=== PATIENT | male | born 1945 | race Caucasian/White ===

== ENCOUNTER 2018-01-24 01:42 | Inpatient (IN) | payer MEDICARE ==
[~2018-01-24] VITALS: Ht 167.6 cm; Wt 76.8 kg
[2018-01-24] MEDS ORDERED: SODIUM CHLORIDE FLUSH 10ML SYR IVF ONE (02:30)
[2018-01-24] MEDS ORDERED: ASPIRIN 81 MG TABLET CHEW PO ONE (02:30)
[2018-01-24] MEDS ORDERED: ACETAMINOPHEN 500 MG TABLET PO ONE (02:30)
[2018-01-24 02:42] LABS: BASOPHILS # (AUTO) 0.03 x10^3/uL (0-0.1); BASOPHILS % (AUTO) 0 % (0-1); EOSINOPHILS # (AUTO) 0.56 x10^3/uL (0-0.4); EOSINOPHILS % (AUTO) 8 % (1-7); LYMPHOCYTES # (AUTO) 1.32 x10^3/uL (1-3.4); LYMPHOCYTES % (AUTO) 19 % (22-44); MD NO; MEAN CORPUSCULAR HGB CONC 32.6 g/dL (33.2-36.2); MEAN CORPUSCULAR VOLUME 94.9 fL (81-97); MEAN PLATELET VOLUME 8.4 fL (7.4-10.4); MONOCYTES % (AUTO) 9 % (2-9); NEUTROPHILS # (AUTO) 4.54 x10^3/uL (1.8-6.8); NEUTROPHILS % (AUTO) 64 % (42-75); PLATELET COUNT 176 x10^3/uL (130-400); RED CELL DISTRIBUTION WIDTH 15.7 % (9.4-14.8)
[2018-01-24] MEDS ORDERED: ACETAMINOPHEN 500 MG TABLET ONE (02:47)
[2018-01-24] MEDS ORDERED: ASPIRIN 81 MG TABLET CHEW ONE (02:47)
[2018-01-24 02:54] LABS: ALANINE AMINOTRANSFERASE 26 U/L (12-78); ALBUMIN 3.6 g/dL (3.4-5.0); ANION GAP 8 mmol/L (5-15); CALCIUM 9.2 mg/dL (8.5-10.1); CHLORIDE 105 mmol/L (98-107); CREATININE 1.62 mg/dL (0.7-1.3)
[2018-01-24 02:58] LABS: ALKALINE PHOSPHATASE 106 U/L (45-117); BILIRUBIN,TOTAL 0.5 mg/dL (0.2-1.0); TOTAL PROTEIN 6.8 g/dL (6.4-8.2); TROPONIN I < 0.015 ng/mL (0.000-0.045)
[2018-01-24 03:05] LABS: INTERNATIONAL NORMALIZED RATIO 1.03 (0.93-1.1); PROTHROMBIN TIME 10.6 Seconds (9.6-11.5)
[2018-01-24] MEDS ORDERED: SODIUM CHLORIDE 0.9% 1,000ML IVBOLUS ONE (04:00)
[2018-01-24] MEDS ORDERED: OMNIPAQUE 350 MG/ML, 100ML BOTTLE ONE (04:47)
[2018-01-24] MEDS ORDERED: RIVAROXABAN 15 MG TABLET PO ONE (06:00)
[2018-01-24] MEDS ORDERED: HEPARIN 25,000 UNITS/500ML PMX 500 ML ONE (07:39)
[2018-01-24] MEDS ORDERED: HEPARIN 5,000 UNITS/ML, 1ML ONE (07:39)
[2018-01-24] MEDS ORDERED: HEPARIN 5,000 UNITS/ML, 1ML IV ONE (08:00)
[2018-01-24] MEDS ORDERED: HEPARIN 25,000 UNITS/500ML PMX 500 ML IV PRN (08:00)
[2018-01-24] MEDS ORDERED: HEPARIN 5,000 UNITS/ML, 1ML IV PRN (08:00)
[2018-01-24] MEDS ORDERED: CLOP75TA PO (08:11)
[2018-01-24] MEDS ORDERED: LOSA50TA6 PO (08:11)
[2018-01-24] MEDS ORDERED: UBID200C7 PO (08:11)
[2018-01-24] MEDS ORDERED: FURO20TA3 PO (08:11)
[2018-01-24] MEDS ORDERED: ASPI-496 PO (08:11)
[2018-01-24] MEDS ORDERED: PANT40TA5 PO (08:11)
[2018-01-24] MEDS ORDERED: ROSU10TA PO (08:11)
[2018-01-24] MEDS ORDERED: EPLE25TA4 PO (08:11)
[2018-01-24] MEDS ORDERED: ALLO300T PO (08:11)
[2018-01-24] MEDS ORDERED: RANI300C PO (08:11)
[2018-01-24 08:25] VITALS: BP 159/78
[2018-01-24] MEDS ORDERED: ALLOPURINOL 300 MG TABLET PO SCH (09:00)
[2018-01-24] MEDS ORDERED: ACETAMINOPHEN 325 MG TABLET PO PRN (09:30)
[2018-01-24] MEDS ORDERED: ONDANSETRON 2MG/ML, 2ML IVPush PRN (09:30)
[2018-01-24] MEDS: FUROSEMIDE 20 MG TABLET PO SCH ×2 (10:53→21:46)
[2018-01-24] MEDS: EPLERENONE 25 MG PO SCH ×2 (10:53→20:39)
[2018-01-24] MEDS ORDERED: CARV6.2512 PO (10:55)
[2018-01-24 11:59] LABS: TROPONIN I < 0.015 ng/mL (0.000-0.045)
[2018-01-24] MEDS ORDERED: LOSARTAN 50MG TABLET PO SCH (12:00)
[2018-01-24] MEDS ORDERED: PANTOPROZOLE 40MG TABLET PO SCH (12:00)
[2018-01-24 14:05] VITALS: BP 125/73
[2018-01-24 16:36] LABS: TROPONIN I 0.026 ng/mL (0.000-0.045)
[2018-01-24] MEDS ORDERED: RIVAROXABAN 15 MG TABLET PO SCH (17:00)
[2018-01-24 18:25] VITALS: BP 147/79
[2018-01-24] MEDS ORDERED: TAMS-11 PO (20:17)
[2018-01-24] MEDS ORDERED: PANTOPROZOLE 40MG TABLET HOMEMEDPO SCH (20:30)
[2018-01-24] MEDS ORDERED: TAMSULOSIN 0.4 MG CAP.ER.24H HOMEMEDPO SCH (20:30)
[2018-01-24] MEDS ORDERED: CARVEDILOL 6.25 MG TABLET HOMEMEDPO SCH (20:30)
[2018-01-24] MEDS ORDERED: FUROSEMIDE 20 MG TABLET PO SCH (21:00)
[2018-01-24] MEDS ORDERED: TEMPLATE NON-FORMULARY MED. (Eplerenone 25 MG) PO SCH (21:00)
[2018-01-24] MEDS ORDERED: TEMPLATE NON-FORMULARY MED. (Ranitidine Hcl** 300 MG) PO SCH (21:00)
[2018-01-24] MEDS ORDERED: TEMPLATE NON-FORMULARY MED. (Rosuvastatin Calcium** (Crestor**) 10 MG) PO SCH (21:00)
[2018-01-25 01:12] VITALS: BP 136/70
[2018-01-25 07:08] VITALS: BP 149/69
[2018-01-25] MEDS ORDERED: PANTOPROZOLE 40MG TABLET PO SCH (09:00)
[2018-01-25] MEDS ORDERED: UBIDECARENONE 200 MG PO SCH (09:00)
[2018-01-25] MEDS ORDERED: LOSARTAN 50MG TABLET PO SCH (09:00)
[2018-01-25] MEDS ORDERED: ASPIRIN 81 MG TABLET EC PO SCH (09:00)
[2018-01-25] MEDS ORDERED: ALLOPURINOL 300 MG TABLET PO SCH (09:00)
[2018-01-25] MEDS ORDERED: RIVAROXABAN 15 MG TABLET PO SCH (09:00)
[2018-01-25] MEDS ORDERED: RIVA15TA PO (09:17)
== END 2018-01-25 10:40 | disposition home or self-care (01) | DRG 175 ==
LOC: ED 07:24 → 4WST 07:25 → 4EST 07:25 → UNDOADMIN 07:25 → ED 07:38 → 4EST 08:13 → ED 08:13 → 4WST 08:13 → DCLOUNGE 01-25 10:32
PROVIDERS: ADMIT Internal Medicine; ATTEND Internal Medicine
DX: I26.99 Other pulmonary embolism without acute cor pulmonale (principal); J98.59 Other diseases of mediastinum, not elsewhere classified; N17.9 Acute kidney failure, unspecified; I50.20 Unspecified systolic (congestive) heart failure; I11.0 Hypertensive heart disease with heart failure; I25.5 Ischemic cardiomyopathy; I25.10 Atherosclerotic heart disease of native coronary artery without angina pectoris; E78.5 Hyperlipidemia, unspecified; M10.9 Gout, unspecified; Z82.49 Family history of ischemic heart disease and other diseases of the circulatory system; Z95.5 Presence of coronary angioplasty implant and graft; Z86.79 Personal history of other diseases of the circulatory system; Z88.1 Allergy status to other antibiotic agents; Z88.8 Allergy status to other drugs, medicaments and biological substances; Z79.82 Long term (current) use of aspirin; Z79.899 Other long term (current) drug therapy
CPT/HCPCS: 36415; 71045; 71275; 80053; 83690; 83880; 84484; 85025; 85379; 85520; 85610; 85730; 93005; 93970; 96374; J1644; Q9967; J7030